=== PATIENT | male | born 1975 | race Caucasian/White ===

== ENCOUNTER 2018-04-14 03:45 | Emergency (ER) | payer SELFPAY ==
[~2018-04-14] VITALS: Ht 185.4 cm; Wt 113.6 kg
[2018-04-14 03:55] VITALS: TEMP 96.9
[2018-04-14 06:00] VITALS: BP 122/69; PULSE 75
== END 2018-04-14 06:00 | disposition home or self-care (01) ==
LOC: COL.ER 03:45
DX: S61.412A Laceration without foreign body of left hand, initial encounter (principal); Z23 Encounter for immunization; W19.XXXA Unspecified fall, initial encounter; W26.8XXA Contact with other sharp object(s), not elsewhere classified, initial encounter; Y92.410 Unspecified street and highway as the place of occurrence of the external cause

== ENCOUNTER → 2018-04-20 | Emergency (ER) | payer SELFPAY ==
[2018-04-20 20:49] VITALS: BP 175/91; PULSE 83; TEMP 98.4
== END ==
LOC: COL.ER 20:47
DX: S61.412D Laceration without foreign body of left hand, subsequent encounter (principal); X58.XXXD Exposure to other specified factors, subsequent encounter